=== PATIENT | male | born 1990 | race Hispanic/Latino ===

== ENCOUNTER 2023-09-19 11:43 | Emergency (ER) | payer SELFPAY ==
[2023-09-19 12:54] LABS: ALT (SGPT) 18 U/L (8-55); AST (SGOT) 18 U/L (5-34); Albumin 4.3 g/dL (3.5-5.0); Alkaline Phosphatase 63 U/L (40-110); Anion Gap 13 mmol/L (10-20); BUN (Urea Nitrogen) 13 mg/dL (8.9-20.6); Bilirubin, Total 0.7 mg/dL (0.2-1.2); Calc. Creatinine Clearance 0 mL/min (70-130); Calcium 9.3 mg/dL (7.8-10.44); Carbon Dioxide 27 mmol/L (22-29); Chloride 102 mmol/L (98-107); Estimated GFR 100; Globulin 2.9 g/dL (2.4-3.5); Glucose 92 mg/dL (70-105); Magnesium 1.9 mg/dL (1.6-2.6); Protein, Total 7.2 g/dL (6.0-8.3); Sodium 138 mmol/L (136-145)
[2023-09-19 12:59] LABS: Hematocrit 39.4 % (38.8-50.0); Hemoglobin 14.1 g/dL (13.5-17.5); Mean Corpuscular HGB CONC 35.8 g/dL (32.0-36.0); Mean Corpuscular Hemoglobin 32.6 pg (27.0-33.0); Mean Corpuscular Volume 91.2 fl (81.2-95.1); Mean Platelet Volume 10.2 fl (7.4-10.4); Platelet Count 160 10x3/uL (150-450); RBC Distribution Width 12.1 % (11.5-14.5); Red Blood Cell (RBC) Count 4.32 10x6/uL (4.32-5.72); White Blood Cell (WBC) Count 2.2 10x3/uL (3.5-10.5)
[2023-09-19] MEDS ORDERED: Acetaminophen 500 MG TAB ONE (12:59)
[2023-09-19] MEDS ORDERED: Ketorolac Tromethamine 30 MG (1 mL) VIAL ONE (13:09)
[2023-09-19 13:36] LABS: Band 4 % (5-11); Eosinophils 3 % (0-10); Lymphocytes 23 % (21-51); Monocytes 25 % (0-10); Reactive Lymphocytes 3 % (0-10)
[2023-09-19 13:37] LABS: Neutrophil 40 % (42-75); Platelet Adequacy Comment Appears Adequate; RBC Morph Comment Within Normal Limits
[2023-09-19 13:38] LABS: MDiff Complete? YES
== END 2023-09-19 14:56 | disposition home or self-care (01) ==
LOC: CSHERS 11:43
DX: R51.9 Headache, unspecified (principal); R10.9 Unspecified abdominal pain; G89.29 Other chronic pain; R63.0 Anorexia; R53.83 Other fatigue
CPT/HCPCS: 70450; 80053; 83735; 85025; 94760; 96374; J1885